=== PATIENT | female | born 1980 | race Two or more races ===

== ENCOUNTER 2016-08-30 07:54 | Emergency (ER) | payer MEDICAID, OTHER ==
[2016-08-30 08:01] VITALS: TEMP 98.2; O2SAT 96
--- NOTE | 2016-08-30 08:16 | EDPHY ---
H & P Time Seen by Provider: 08/30/16 08:03 HPI/ROS: CHIEF COMPLAINT: Headache, difficulty sleeping HISTORY OF PRESENT ILLNESS: The patient is a 35-year-old female who presents with intermittent headaches and difficulty sleeping since a mechanical fall 3 days ago. The patient slipped while getting into the bath. She fell forward and hit her head. She did not lose consciousness, but has since had. She states she feels slightly confused and has some trouble communicating with coworkers. She has not slept well for the past three nights and states she feels sad and weak. She currently has a mild headache and neck pain. She has been taking Ibuprofen and finding some relief. She denies numbness or tingling in her extremities. Of note, the patient takes control. She has been menstruating for the past 2 week which is abnormal for her. REVIEW OF SYSTEMS: A comprehensive 10 point review of systems is otherwise negative aside from elements mentioned in the history of present illness. Past Medical/Surgical History: Denies. Social History: Boyfriend at bedside. Lives in [place]. Smoking Status: Never smoked Physical Exam: General Appearance: Alert, tearful Head: Left forehead contusion Eyes: Pupils equal and round, no conjunctival pallor or injection ENT, Mouth: Mucous membranes moist Neck: Left paraspinous tenderness. Respiratory: Lungs are clear to auscultation Cardiovascular: Regular rate and rhythm Gastrointestinal: Abdomen is soft and non-tender Neurological: A&O, nonfocal, normal gait Skin: Warm and dry, no rash Extremities: Nontender, no pedal edema Psychiatric: Mood and affect normal Constitutional: Initial Vital Signs Temperature (C) 36.8 C 08/30/16 07:58 Heart Rate 64 08/30/16 07:58 Respiratory Rate 20 08/30/16 07:58 Blood Pressure 108/71 08/30/16 07:58 O2 Sat (%) 96 08/30/16 07:58 O2 Delivery Mode Room Air Allergies/Adverse Reactions: No Known Allergies Allergy (Unverified 08/30/16 07:57) Home Medications: Medication Instructions Recorded Bcp 08/30/16 Medical Decision Making - Diagnostics Imaging Results: Imaging Impressions Head CT 08/30/16 08:12 Impression: Head CT within normal limits. Results called to Dr. Azar at 8:53 AM General information for patients regarding this examination can be found at [email or web address]. If you have questions or comments about this report, please contact me at (hospital) or [phone] (cell). Imaging: Discussed imaging studies w/ will call clerk Radiologist ED Course/Re-evaluation: The patient presents with difficulty sleeping and intermittent headaches since hitting her head 3 days ago. The patient slipped while getting into the bath and hit her head. She complains of neck pain and headache which improves Ibuprofen. She has gotten very little sleep over the past 3 nights. She feels sad and tired. On exam the patient has a left forehead contusion and left paraspinous tenderness. Plan for CT head, given persistent LORD, personality changes. CT head in normal. Plan to discharge home with recommended PCP followup. Differential Diagnosis: Differential diagnosis includes though it is not limited to fracture, intracranial hemorrhage, pneumothorax, hemothorax, intra-abdominal hemorrhage. Departure - Departure Disposition: Home, Routine, Self-Care Clinical Impression: Concussion Qualifiers: Encounter type: initial encounter Loss of consciousness presence/duration: without LOC Qualified Code(s): S06.0X0A - Concussion without loss of consciousness, initial encounter Neck strain Qualifiers: Encounter type: initial encounter Qualified Code(s): S16.1XXA - Strain of muscle, fascia and tendon at neck level, initial encounter Condition: Good Instructions: Concussion (ED), Cervical Strain (ED) Additional Instructions: Please followup with your primary care physician on Saturday for reevaluation. Ibuprofen 600mg 3 times daily as needed for neck pain and headaches. I recommend Benadryl at night to help with insomnia. Please return to the Emergency Department with severe headache, nausea, new, or worsening symptoms. Referrals: Ashley Edwards MD [Primary Care Provider] - 3-4 days, if not improved ( Followup on Saturday. ) Report Scribed for: Kailee Azar Report Scribed by: Jade Hawk Date of Report: 08/30/16 Time of Report: 08:04 Physician Review and Approval Statement: 08/30/16 08:04 Portions of this note were transcribed by a medical policy specialist. I personally performed the history, physical exam, and medical decision-making; and confirmed the accuracy of the information in the transcribed note.
[2016-08-30 09:11] VITALS: BP 123/71; PULSE 72; RESP 14
== END 2016-08-30 09:10 | disposition home or self-care (01) ==
DX: S06.0X0A Concussion without loss of consciousness, initial encounter (principal); S16.1XXA Strain of muscle, fascia and tendon at neck level, initial encounter; W18.2XXA Fall in (into) shower or empty bathtub, initial encounter

== ENCOUNTER 2016-09-25 16:29 | Emergency (ER) | payer MEDICAID ==
--- NOTE | 2016-09-25 16:49 | EDPHY ---
H & P Stated Complaint: l arm tinglin l face tinglin x 20min Source: Patient, Family - Personal History LMP (Females 10-55): Current Tetanus/Diphtheria Vaccine: Unsure Current Tetanus Diphtheria and Acellular Pertussis (TDAP): Unsure - Medical/Surgical History Hx Asthma: No Hx Chronic Respiratory Disease: No Hx Diabetes: No Hx Cardiac Disease: No Hx Renal Disease: No Hx Cirrhosis: No Hx Alcoholism: No Hx HIV/AIDS: No Hx Splenectomy or Spleen Trauma: No Other PMH: concussion late august 2016 - Social History Smoking Status: Never smoked Time Seen by Provider: 09/25/16 16:38 HPI/ROS: CHIEF COMPLAINT: Left arm numbness tingling radiating to chest HISTORY OF PRESENT ILLNESS: This is a 35-year-old female presenting to the emergency department complaining of left arm tingling radiating to left side of her chest with chest pressure. Patient states was here on 08/30/16 status post falling and hitting head on 08/27/16, CT head was negative diagnosed with concussion. Patient states today she was on the computer no strenuous activity she started having some tingling to her face, left arm, and chest tightness onset around 1610. Patient family member at bedside states that she was having difficulties formulating words at that time. Patient ambulatory without gait disturbance reports the acting and answering questions appropriately, feeling left anterior chest tightness at this moment but it is intermittent, no nausea vomiting. Family member states this could be a component of her feeling anxious or depressed due to an upcoming reunion, there is a person that she does not really want to see patient also reported she gets angry when she thinks about this. REVIEW OF SYSTEMS: Constitutional: No fever, no chills. Eyes: No discharge. No blurred vision ENT: No sore throat. Cardiovascular: Chest tightness, no palpitations. Respiratory: No cough, no shortness of breath. Gastrointestinal: No abdominal pain, no vomiting. Genitourinary: No hematuria. Musculoskeletal: No back pain. Left arm tingling Skin: No rashes. Neurological: Intermittent headache since had injury on the 08/27 but resolves with ibuprofen or Tylenol (Rosario Hernández) - Physical Exam Exam: General Appearance: Alert, no distress. Non ill-appearing Eyes: Pupils equal and round no pallor or injection. ENT, Mouth: Mucous membranes moist. Respiratory: There are no retractions, lungs are clear to auscultation. Cardiovascular: Regular rate and rhythm. Gastrointestinal: Abdomen is soft and nontender, no masses, bowel sounds normal. Neurological: No focal deficits, cranial nerves intact, ambulatory without gait disturbance Skin: Warm and dry, no rashes. Musculoskeletal: Neck is supple nontender. Extremities: symmetrical, full range of motion. Equal bilateral infant babysitter strength Psychiatric: Patient is oriented X 3, flat affect (Rosario Hernández) Constitutional: Initial Vital Signs Temperature (C) 36.4 C 09/25/16 16:33 Heart Rate 76 09/25/16 16:33 Respiratory Rate 16 09/25/16 16:33 Blood Pressure 127/84 H 09/25/16 16:33 O2 Sat (%) 98 09/25/16 16:33 O2 Delivery Mode Room Air Allergies/Adverse Reactions: No Known Allergies Allergy (Unverified 08/30/16 07:57) Home Medications: Medication Instructions Recorded Bcp 08/30/16 Medical Decision Making ED Course/Re-evaluation: Discussed ED plan of care: EKG, CBC BMP troponin. Reviewed previous records 1750: Patient re-evaluation---> NAD, no focal deficits well-appearing denies any chest pain shortness of breath arm tingling has resolved, patient feels she is better to go home tolerating PO intake. Discharge home---> stable, discussed discharge instructions (Rosario Hernández) I did not see or evaluate this patient. This patient was seen primary by Rosario WELLS. (Bubba Liao) Differential Diagnosis: Other differential diagnosis considered but not limited to panic attack, depression, and electrolyte imbalance (Rosario Hernández) - Data Points Laboratory Results: Laboratory Results 09/25/16 17:08 09/25/16 17:08 Departure - Departure Disposition: Home, Routine, Self-Care Clinical Impression: Anxiety Condition: Good Instructions: Depression (ED), Generalized Anxiety Disorder (ED) Additional Instructions: 1. I would recommend following up with your primary care provider this week 2. Recommend utilizing calming techniques some deep breathing exercises. Stay of social media as this can be a component of your anxiety 3. Increase fluid intake rest, I would also recommend staying off the computer games until you follow up with your primary care provider Referrals: Ashley Edwards MD [Primary Care Provider] - As per Instructions
--- NOTE | 2016-09-25 17:05 | CPEKG ---
Heart Rate: 70 RR Interval: 857 P-R Interval: 148 QRSD Interval: 80 QT Interval: 392 QTC Interval: 423 P Morral: 55 QRS Morral: 44 T Wave Morral: 50 EKG Severity - NORMAL ECG - EKG Impression: SINUS RHYTHM Electronically Signed By: Bubba Liao 25-Sep-2016 22:05:45
[2016-09-25 17:22] LABS: % IMMATURE GRANULYOCYTES 0.5 % (0.0-1.1); ABSOLUTE IMMATURE GRANULOCYTES 0.03 10^3/uL (0.00-0.10); ADD DIFF? NO; ADD MORPH? NO; ADD SCAN? NO; ATYPICAL LYMPHOCYTE FLAG 0 (0-99); FRAGMENT RBC FLAG 0 (0-99); HEMATOCRIT 36.7 % (38.0-47.0); LEFT SHIFT FLG 0 (0-99); LIPEMIA HEMOLYSIS FLAG 90 (0-99); MEAN CELL HEMOGLOBIN 32.1 pg (27.9-34.1); MEAN CELL HEMOGLOBIN CONCENTR. 35.4 g/dL (32.4-36.7); MEAN CELL VOLUME 90.6 fL (81.5-99.8); MEAN PLATELET VOLUME 9.8 fL (8.7-11.7); PLATELET CLUMPS FLAG 0 (0-99); PLATELET COUNT 321 10^3/uL (150-400); RED BLOOD CELL COUNT 4.05 10^6/uL (4.18-5.33); RED CELL DISTRIBUTION WIDTH 11.7 % (11.5-15.2)
[2016-09-25 17:35] LABS: ANION GAP 10 mEq/L (8-16); CALCIUM 9.4 mg/dL (8.5-10.4); CARBON DIOXIDE 21 mEq/l (22-31); CHLORIDE 107 mEq/L (97-110); CREATININE 0.5 mg/dL (0.6-1.0); GLOMERULAR FILTRATION RATE > 60; GLUCOSE 83 mg/dL (70-100); POTASSIUM 3.8 mEq/L (3.5-5.2); SODIUM 138 mEq/L (134-144)
[2016-09-25 17:45] LABS: TROPONIN I < 0.012 ng/mL (0-0.034)
[2016-09-25 18:17] VITALS: BP 130/84; PULSE 80; RESP 14; TEMP 98.4; O2SAT 94
== END 2016-09-25 18:16 | disposition home or self-care (01) ==
DX: O99.340 Other mental disorders complicating pregnancy, unspecified trimester (principal); F41.9 Anxiety disorder, unspecified; Z3A.00 Weeks of gestation of pregnancy not specified

== ENCOUNTER → 2018-07-01 | Outpatient (CLI) | payer MEDICAID | LOC: FIMAGING 15:31 | PROVIDERS: ATTEND Family Medicine | DX: D25.1 Intramural leiomyoma of uterus (principal); D25.2 Subserosal leiomyoma of uterus ==